=== PATIENT | male | born 1995 | race Caucasian/White ===

== ENCOUNTER 2018-07-25 18:24 | Emergency (ER) | payer SELFPAY ==
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
== END 2018-07-25 18:50 | disposition home or self-care (01) ==
LOC: MW.ED 18:24
DX: Z02.89 Encounter for other administrative examinations (principal)
CPT/HCPCS: 82962; 99282

== ENCOUNTER 2019-10-10 09:11 | Emergency (ER) | payer SELFPAY ==
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
--- NOTE | 2019-10-10 10:56 | CT ---
EXAM DATE: 10/10/19 PATIENT'S AGE: 24 CT facial bones Multiple axial sections were obtained through the facial bones. Reconstructed coronal and sagittal images were reviewed. Comparison: No prior facial bone exam. Findings: Slight mucosal thickening is seen within the ethmoid sinuses. Small retention cyst noted within the right frontal sinus. Other paranasal sinuses are clear. No air-fluid levels are seen. Mastoid sinuses are clear. Middle ear cavities are clear. Diffuse soft tissue swelling noted within the right cheek, right periorbital region and right frontal region. Very minimal nasal septal deviation is noted. Osteotomy maxillary sinuses are clear. No acute facial bone abnormality is appreciated. Impression: 1. Slight mucosal thickening within the ethmoid sinus. Minimal nasal septal deviation. 2. CT study of the facial bones is otherwise unremarkable. Diagnostic code #2 Report Signed by Proxy. [facility]
--- NOTE | 2019-10-10 11:19 | CT ---
EXAM DATE: 10/10/19 PATIENT'S AGE: [address] Technique: Multiple axial sections through the brain were obtained. Intravenous contrast was not utilized. Comparison: No previous intracranial imaging. Findings: Diffuse soft tissue swelling is noted within the right cheek, right periorbital region and right frontal region. Right and left globes are symmetric in size. No retrobulbar abnormality is seen. Ventricles along with basal cisterns and sulci over the convexities are within normal limits for the patient's age. No abnormal parenchymal densities are seen. No evidence of intracranial hemorrhage. No midline shift or mass effect is seen. Bone window settings were reviewed which shows no acute calvarial abnormality. Mastoid sinuses are clear. Slight mucosal thickening is seen within the right ethmoid sinus. Minimal mucosal thickening is seen within the right frontal sinus most likely representing small retention cyst. No acute calvarial abnormality is appreciated. Impression: 1. Soft tissue swelling as noted above. 2. No acute intracranial abnormality is seen. No acute calvarial abnormality is seen. Diagnostic code #2 Report Signed by Proxy. [facility]
== END 2019-10-10 11:30 | disposition home or self-care (01) ==
LOC: MW.ED 09:11
DX: S09.90XA Unspecified injury of head, initial encounter (principal); S00.11XA Contusion of right eyelid and periocular area, initial encounter; W01.198A Fall on same level from slipping, tripping and stumbling with subsequent striking against other object, initial encounter
CPT/HCPCS: 70450; 70450-26; 70486; 70486-26; 99283; 99283-25

== ENCOUNTER 2020-10-20 15:25 | Emergency (ER) | payer SELFPAY ==
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
== END 2020-10-20 16:26 ==
LOC: MW.ED 15:25
DX: Z04.1 Encounter for examination and observation following transport accident (principal)
CPT/HCPCS: 99282; 99284

== ENCOUNTER 2021-06-08 03:59 | Emergency (ER) | payer SELFPAY ==
[2021-06-08] MEDS ORDERED: Sodium Chloride 0.9% 10 ML Syringe FLUSH PRN (04:03)
[2021-06-08] MEDS ORDERED: Sodium Chloride 0.9% 2.5 ML Syringe FLUSH PRN (04:03)
[2021-06-08] MEDS ORDERED: Sodium Chloride 0.9% 1,000 ML IV ONE (04:03)
--- NOTE | 2021-06-08 04:11 | EDM.PDOC ---
ED HPI GENERAL MEDICAL PROBLEM - General Stated Complaint: UNRESPONSIVE Time Seen by Provider: 06/08/21 04:04 - History of Present Illness INITIAL COMMENTS - FREE TEXT/NARRATIVE: HISTORY AND PHYSICAL: History of present illness: This is a 26-year-old gentleman who was brought in by EMS as a trauma alert secondary to a fall down 7 steps while intoxicated and being unresponsive upon their arrival at the scene. Per EMS, the patient was drinking significant alcohol and smoking marijuana today. When he went home with his friends, they were assisting him up the stairs when he fell approximately 7 steps down his stairs and was unresponsive. Upon arrival to the ED, the patient is easily arousable, awake, somnolent, oriented x3, alert and answering questions appropriately. Patient denies any pain to his upper or lower extremities, pelvis, abdomen, chest, back, head, neck. Patient does not recall why he is here in the ED. Patient denies any history of hypertension, diabetes, liver, lung, kidney problems. Patient does admit to smoking and alcohol. Patient denies any recent fevers, shakes, chills, nausea, vomiting, diarrhea, dysuria, frequency, urgency. Review of systems: As per history of present illness and below otherwise all systems reviewed and negative. Past medical history: As per history of present illness and as reviewed below otherwise noncontributory. Surgical history: As per history of present illness and as reviewed below otherwise noncontributory. Social history: No reported history of drug abuse. Family history: As per history of present illness and as reviewed below otherwise noncontributory. Physical exam: This patient was seen and evaluated during the 2019 SARS-CoV-2 novel coronavirus pandemic period. Community viral transmission is ongoing at time of this encounter and the emergency department is operating under pandemic response procedures. Constitutional: Patient is oriented to person, place, and time. Appears well- developed and well-nourished. No distress. HEENT: Moist mucous membranes Head: Normocephalic and atraumatic Eyes: Right eye exhibits no discharge. Left eye exhibits no discharge. No scleral icterus Neck: Normal range of motion. No tracheal deviation present. Cardiovascular: Normal rate and regular rhythm. Pulmonary: Effort normal, no respiratory distress. Abdominal: No distention Musculoskeletal: Normal range of motion Neurologic: Alert and oriented to person, place and time. Skin: [place], warm and dry. Psychiatric: Normal mood and affect. Behavior is normal. Judgment and thought content normal. Nursing note and vital signs have been reviewed Patient has no C-spine T-spine or L-spine tenderness to palpation. No bony step-off. Patient has no left upper or right upper quadrant tenderness to palpation. Patient has no crepitus to palpation to the anterior chest wall. Patient is neurologically intact. Patient does not present with any signs or or symptoms that would be consistent with acute intracranial, intra-abdominal, intrathoracic, or long bone injury. All long bones have been palpated and range of motion been performed and there is no evidence of any acute pathology. Skull palpated and no deformity swelling or bleeding identified. Patient does have an old scab/birthmark appearing lesion to his right shinto. Diagnostics: CT scan of head and cervical spine both negative for any acute pathology. Patient's alcohol level was elevated at 385. Therapeutics: NSS x1 L Assessment and plan: 26-year-old who presents ER today for trauma evaluation secondary to alcohol intoxication and marijuana use. Upon arrival to the ED, he is C-collared and backboarded. Patient is alert awake and orient x3. Patient has a normal neurological exam. Patient is able to show me 2 fingers with his left hand. Patient has a GCS of 15. Patient will obtain a CT scan of his head and cervical spine to rule out any intra-cranial or cervical pathology. 6:30 AM: Patient is CT scan of his head and cervical spine were both unremarkable for any acute pathology. Patient has been resting comfortably in the ED without any further issues. Patient's alcohol level was 385. Patient be monitored here in the ED until clinical sobriety. 7 AM: Care has been signed out to the oncoming physician Dr. Guillen. Patient still currently extremely intoxicated with unstable gait and unable to be discharged at this time. Patient will need to be reevaluated prior to discharge by Dr. Guillen to ensure gait stability and normal mentation. Definitive disposition and diagnosis as appropriate pending reevaluation and review of above. - Related Data Allergies Allergy/AdvReac Type Severity Reaction Status Date / Time No Known Allergies Allergy Verified 06/08/21 04:47 Home Meds: Home Meds . [No Known Home Meds] 07/25/18 [History] Past Medical History - Past Health History Medical/Surgical History: Denies Medical/Surgical History HEENT History: Reports: None Cardiovascular History: Reports: None Respiratory History: Reports: None Gastrointestinal History: Reports: None Genitourinary History: Reports: None Musculoskeletal History: Reports: None Neurological History: Reports: None Psychiatric History: Reports: None Endocrine/Metabolic History: Reports: None Hematologic History: Reports: None Immunologic History: Reports: None Oncologic (Cancer) History: Reports: None Dermatologic History: Reports: None - Past Surgical History Head Surgeries/Procedures: Reports: None HEENT Surgical History: Reports: None Cardiovascular Surgical History: Reports: None Respiratory Surgical History: Reports: None GI Surgical History: Reports: None Male Surgical History: Reports: None Endocrine Surgical History: Reports: None Neurological Surgical History: Reports: None Musculoskeletal Surgical History: Reports: None Oncologic Surgical History: Reports: None Dermatological Surgical History: Reports: None Social & Family History - Family History Family Medical History: No Pertinent Family History - Caffeine Use Caffeine Use: Reports: Energy Drinks ED ROS GENERAL - Review of Systems Review Of Systems: See Below ED EXAM, GENERAL - Physical Exam Exam: See Below Course - Vital Signs Last Recorded V/S: Last Vital Signs Temp 97.7 F 06/08/21 04:44 Pulse 87 06/08/21 08:15 Resp 16 06/08/21 08:15 BP 114/77 06/08/21 08:15 Pulse Ox 95 06/08/21 08:15 - Orders/Labs/Meds Orders: Active Orders 24 hr Category Date Time Status Saline Lock Insert [OM.PC] Stat Oth 06/08/21 04:03 Ordered Labs: Laboratory Tests 06/08/21 06/08/21 Range/Units 04:00 04:00 WBC 5.18 (4.0-11.0) K/uL RBC 4.40 L (4.50-5.90) M/uL Hgb 13.9 (13.0-17.0) g/dL Hct 39.8 (38.0-50.0) % MCV 90.5 (80.0-98.0) fL MCH 31.6 (27.0-32.0) pg MCHC 34.9 (31.0-37.0) g/dL RDW Std Deviation 43.9 (28.0-62.0) fl RDW Coeff of Kory 13 (11.0-15.0) % Plt Count 272 (150-400) K/uL MPV 10.30 (7.40-12.00) fL Neut % (Auto) 66.0 (48.0-80.0) % Lymph % (Auto) 26.4 (16.0-40.0) % Hardy % (Auto) 5.6 (0.0-15.0) % Eos % (Auto) 1.4 (0.0-7.0) % Baso % (Auto) 0.6 (0.0-1.5) % Neut # (Auto) 3.4 (1.4-5.7) K/uL Lymph # (Auto) 1.4 (0.6-2.4) K/uL Hardy # (Auto) 0.3 (0.0-0.8) K/uL Eos # (Auto) 0.1 (0.0-0.7) K/uL Baso # (Auto) 0.0 (0.0-0.1) K/uL Nucleated RBC % 0.0 /100WBC Nucleated RBCs # 0 K/uL Sodium 146 (136-148) mmol/L Potassium 3.5 (3.5-5.1) mmol/L Chloride 108 H (98-107) mmol/L Carbon Dioxide 24.5 (21.0-32.0) mmol/L BUN 10 (7.0-18.0) mg/dL Creatinine 0.9 (0.8-1.3) mg/dL Est Cr Clr Drug Dosing TNP Estimated GFR (MDRD) > 60.0 ml/min Glucose 98 (74-106) mg/dL Calcium 7.2 L (8.5-10.1) mg/dL Total Bilirubin 0.2 (0.2-1.0) mg/dL AST 20 (15-37) IU/L ALT 25 (14-63) IU/L Alkaline Phosphatase 81 (46-116) U/L Total Protein 7.1 (6.4-8.2) g/dL Albumin 4.1 (3.4-5.0) g/dL Globulin 3.0 (2.6-4.0) g/dL Albumin/Globulin Ratio 1.4 (0.9-1.6) Ethyl Alcohol 385 mg/dL Meds: Medications Discontinued Medications Generic Name Dose Route Start Last Admin Trade Name Freq PRN Reason Stop Dose Admin Sodium Chloride 1,000 mls @ 999 mls/hr 06/08/21 04:03 06/08/21 04:57 Normal Saline IV 06/08/21 05:03 999 mls/hr .Bolus ONE Administration Sodium Chloride 10 ml 06/08/21 04:03 06/08/21 04:56 Sodium Chloride 0.9% 10 Ml Syringe FLUSH 10 ml ASDIRECTED PRN Administration Keep Vein Open Sodium Chloride 2.5 ml 06/08/21 04:03 06/08/21 04:56 Sodium Chloride 0.9% 2.5 Ml Syringe FLUSH 2.5 ml ASDIRECTED PRN Administration Keep Vein Open Departure - Departure Time of Disposition: 07:00 Disposition: Still A Patient 30 Clinical Impression: Fall (on) (from) other stairs and steps, initial encounter Acute alcohol intoxication Qualifiers: Complication of substance-induced condition: uncomplicated Qualified Code(s): F10.920 - Alcohol use, unspecified with intoxication, uncomplicated Head trauma Qualifiers: Encounter type: initial encounter Qualified Code(s): S09.90XA - Unspecified injury of head, initial encounter - Discharge Information Instructions: Alcohol Intoxication Forms: ED Department Discharge Care Plan Goals: The following information is given to patients seen in the emergency department who are being discharged to home. This information is to outline your options for follow-up care. We provide all patients seen in our emergency department with a follow-up referral. The need for follow-up, as well as the timing and circumstances, are variable depending upon the specifics of your emergency department visit. If you don't have a primary care physician on staff, we will provide you with a referral. We always advise you to contact your personal physician following an emergency department visit to inform them of the circumstance of the visit and for follow-up with them and/or the need for any referrals to a consulting specialist. The emergency department will also refer you to a specialist when appropriate. This referral assures that you have the opportunity for follow-up care with a specialist. All of these measure are taken in an effort to provide you with optimal care, which includes your follow-up. Under all circumstances we always encourage you to contact your private physician who remains a resource for coordinating your care. When calling for follow-up care, please make the office aware that this follow-up is from your recent emergency room visit. If for any reason you are refused follow-up, please contact the [facility] Emergency Department at and asked to speak to the emergency department charge nurse. [facility] [address] [place] [id number] [id number] - My Orders Last 24 Hours: My Active Orders 06/08/21 04:03 Saline Lock Insert [OM.PC] Stat - Assessment/Plan Last 24 Hours: My Active Orders 06/08/21 04:03 Saline Lock Insert [OM.PC] Stat
[2021-06-08 05:03] LABS: BLOOD UREA NITROGEN,BUN 10 mg/dL (7.0-18.0); CARBON DIOXIDE,CO2 24.5 mmol/L (21.0-32.0); CHLORIDE,CL 108 mmol/L (98-107); GLUCOSE RANDOM 98 mg/dL (74-106); POTASSIUM,K 3.5 mmol/L (3.5-5.1); SODIUM,NA 146 mmol/L (136-148)
--- NOTE | 2021-06-08 05:16 | CT ---
For Patients: As a result of the Century Cures Act, medical imaging exams and procedure reports are released immediately into your electronic medical record. You may view this report before your referring provider. If you have questions, please contact your health care provider. CT HEAD DATE: 06/08/2021 CLINICAL HISTORY: Patient with fall. TECHNIQUE: Standard CT scanning of the head was performed. COMPARISON: 10/10/2019. FINDINGS: There is no intracranial hemorrhage. The willis matter-white matter differentiation is intact. The size of the ventricular system is normal for age. There is no mass effect or midline shift. The calvarium is unremarkable. The orbits are unremarkable. The paranasal sinuses are unremarkable. The mastoid air cells are unremarkable. The soft tissues are unremarkable. IMPRESSION: Normal head CT. Please note that all CT scans at this facility use dose modulation, iterative reconstruction, and/or weight-based dosing when appropriate to reduce radiation dose to as low as reasonably achievable. Dictated by: Jose Tomlinson MD @ 06/08/2021 05:16:21 (Electronically Signed)
--- NOTE | 2021-06-08 05:24 | CT ---
DATE: 06/08/2021 CLINICAL HISTORY: Trauma. TECHNIQUE: Helical CT acquisition of the cervical spine was performed. Pruett and sagittal reformations were performed and interpreted. COMPARISON: None. FINDINGS: There is no evidence of acute displaced fracture or dislocation of the cervical spine. There is straightening of the normal cervical lordosis. The vertebral body height is maintained. There are scattered degenerative changes in the cervical spine. The visualized prevertebral soft tissues are unremarkable. The visualized lung apices are unremarkable. IMPRESSION: No acute displaced fracture or dislocation of the cervical spine. Please note that all CT scans at this facility use dose modulation, iterative reconstruction, and/or weight-based dosing when appropriate to reduce radiation dose to as low as reasonably achievable. Dictated by Jose Tomlinson MD @ 06/08/2021 5:23:[address] Jose Tomlinson @ Jun 08 2021 5:23AM
== END 2021-06-08 09:05 | disposition still patient (30) ==
LOC: MW.ED 03:59
DX: S09.90XA Unspecified injury of head, initial encounter (principal); F10.129 Alcohol abuse with intoxication, unspecified; Y90.8 Blood alcohol level of 240 mg/100 ml or more; W10.9XXA Fall (on) (from) unspecified stairs and steps, initial encounter
CPT/HCPCS: 36415; 70450; 72125; 80053; 80307; 85025; 99284; J7030; 99283

== ENCOUNTER 2022-03-25 15:38 | Emergency (ER) | payer SELFPAY | END 2022-03-25 17:07 | disposition home or self-care (01) | LOC: MW.ED 15:38 | DX: Z00.8 Encounter for other general examination (principal) | CPT/HCPCS: 82947; 99283 ==

== ENCOUNTER 2023-12-17 20:20 | Emergency (ER) | payer SELFPAY ==
[2023-12-17] MEDS ORDERED: Sodium Chloride 0.9% 2.5 ML Syringe FLUSH PRN (20:26)
[2023-12-17] MEDS ORDERED: Sodium Chloride 0.9% 10 ML Syringe FLUSH PRN (20:26)
[2023-12-17] MEDS ORDERED: Bacitracin Oint 1 GM U/D Packet TOP ONE (20:31)
[2023-12-17] MEDS ORDERED: LORazepam 2 MG/ML SDV IVPUSH ONE (21:10)
[2023-12-17] MEDS ORDERED: Naloxone 0.4 MG/ML SDV IVPUSH PRN (21:22)
[2023-12-17] MEDS ORDERED: fentaNYL 100 MCG/2 ML SDV IVPUSH ONE (21:22)
[2023-12-18] MEDS ORDERED: Propofol 200 MG/20 ML SDV IVPUSH ONE (00:36)
[2023-12-18] MEDS ORDERED: Sodium Chloride 0.9% 1,000 ML IV ONE (05:03)
== END 2023-12-18 06:30 | disposition home or self-care (01) ==
LOC: MW.ED 20:20
DX: S43.085A Other dislocation of left shoulder joint, initial encounter (principal); W00.9XXA Unspecified fall due to ice and snow, initial encounter
CPT/HCPCS: 23650; 36415; 70450; 70486; 71045; 73030; 80307; 96361; 96374; 96375; 99285; J2060; J2704; J3010; J3490; J7030; 23655; 99284

== ENCOUNTER 2023-12-21 01:31 | Emergency (ER) | payer SELFPAY ==
[2023-12-21] MEDS ORDERED: Lidocaine 1% with EPINEPHrine 1:100,000 50 ML MDV INFILT ONE (02:47)
[2023-12-21] MEDS ORDERED: Lidocaine 1% with EPINEPHrine 1:200,000 30 ML SDV INJECT ONE (03:00)
== END 2023-12-21 03:24 ==
LOC: MW.ED 01:31
DX: S09.90XA Unspecified injury of head, initial encounter (principal); S00.83XA Contusion of other part of head, initial encounter; S60.511A Abrasion of right hand, initial encounter; F10.129 Alcohol abuse with intoxication, unspecified; Z02.89 Encounter for other administrative examinations; Y04.2XXA Assault by strike against or bumped into by another person, initial encounter
CPT/HCPCS: 12001; 70450; 72125; 82947; 99284; J3490; 12011; 99283

== ENCOUNTER 2025-05-29 21:04 | Emergency (ER) | payer OTHER | END 2025-05-29 21:23 | LOC: MW.ED 21:04 | DX: F10.120 Alcohol abuse with intoxication, uncomplicated (principal); Y90.9 Presence of alcohol in blood, level not specified; V49.49XA Driver injured in collision with other motor vehicles in traffic accident, initial encounter; Y93.89 Activity, other specified | CPT/HCPCS: 99282; 99284 ==

== ENCOUNTER 2025-09-28 19:01 | Emergency (ER) | payer SELFPAY | END 2025-09-28 19:14 | disposition left against medical advice (07) | LOC: MW.ED 19:01 | DX: Z53.21 Procedure and treatment not carried out due to patient leaving prior to being seen by health care provider (principal) ==